=== PATIENT | female | born 1945 | race Caucasian/White ===

== ENCOUNTER → 2018-04-10 | Outpatient (CLI) | payer MEDICARE, OTHER ==
[2018-04-14 12:08] LABS: HPV 16 Negative (Negative); HPV 18 Negative (Negative); HPV OTHER HR TYPES Negative (Negative)
== END | disposition home or self-care (01) ==
LOC: LAB 17:58 → LAB SHORT 17:58
PROVIDERS: Nurse Practitioner Women's Health
DX: Z12.72 Encounter for screening for malignant neoplasm of vagina (principal)
CPT/HCPCS: 87624; G0123

== ENCOUNTER 2018-11-07 07:38 | Day surgery (SDC) | payer MEDICARE, OTHER ==
[~2018-11-07] VITALS: Ht 160 cm; Wt 61.7 kg
[~2018-11-07 07:38] MED LIST: ASPI81CH PO; DICL25ER PO; FISH OIL 1,0001 EAC1 PO; VITAMIN D32000 UNI2 PO
[2018-11-07] MEDS ORDERED: VAGIFEM10 MCG (08:18)
== END 2018-11-07 12:05 | disposition home or self-care (01) ==
LOC: ORSCSDS 07:38
PROVIDERS: Podiatrist Foot & Ankle Surgery
PROC: 0QSJ04Z Reposition Right Fibula with Internal Fixation Device, Open Approach (ICD-10-PCS; principal; 2018-11-07 09:00)
DX: S82.61XA Displaced fracture of lateral malleolus of right fibula, initial encounter for closed fracture (principal); Z87.820 Personal history of traumatic brain injury; Z79.899 Other long term (current) drug therapy; Z79.82 Long term (current) use of aspirin
CPT/HCPCS: C1713; J1100; J1885; J2250; J2370; J2405; J3010; J7120

== ENCOUNTER → 2019-06-10 | Outpatient (CLI) | payer MEDICARE, OTHER ==
[~2019-06-10] MED LIST changes: +VAGIFEM10 MCG
[2019-06-12 14:07] LABS: HPV 16 Negative (Negative); HPV 18 Negative (Negative); HPV OTHER HR TYPES Negative (Negative)
== END | disposition home or self-care (01) ==
LOC: LAB 17:55 → LAB SHORT 17:55
PROVIDERS: Nurse Practitioner Women's Health
DX: Z12.72 Encounter for screening for malignant neoplasm of vagina (principal); Z91.89 Other specified personal risk factors, not elsewhere classified
CPT/HCPCS: 87624; G0123

== ENCOUNTER 2021-11-29 08:15 | Day surgery (SDC) | payer MEDICARE, OTHER ==
[~2021-11-29] VITALS: Ht 160 cm; Wt 61.4 kg
[~2021-11-29 08:15] MED LIST changes: +PRESERVISION A1 EAC1 PO
--- NOTE | 2021-11-29 08:41 | NUR ---
11/29/21 0841 Ursula Suggs TETRACAINE IN LEFT EYE AT 0830 [facility] LEFT EYE 0834
== END 2021-11-29 10:35 | disposition home or self-care (01) ==
LOC: ORSCSDS 08:15
PROVIDERS: Ophthalmology
PROC: 08RK3JZ Replacement of Left Lens with Synthetic Substitute, Percutaneous Approach (ICD-10-PCS; principal; 2021-11-29 09:30)
DX: H25.12 Age-related nuclear cataract, left eye (principal); H52.202 Unspecified astigmatism, left eye; Z79.899 Other long term (current) drug therapy
CPT/HCPCS: J2001; J2250; J3010; J3301; J7040; V2632